=== PATIENT | male | born 1970 | race American Indian/Alaskan Native ===

== ENCOUNTER 2020-01-11 21:46 | Emergency (ER) | payer OTHER ==
[2020-01-11 21:51] VITALS: BP 129/83
--- NOTE | 2020-01-11 22:36 | Event Note ---
ED Screening Note ED Screening Note: ear pain jaw pain This initial assessment/diagnostic orders/clinical plan/treatment(s) is/are subject to change based on patients health status, clinical progression and re- assessment by fellow clinical providers in the ED. Further treatment and workup at subsequent clinical providers discretion. Patient/guardian urged not to elope from the ED as their condition may be serious if not clinically assessed and managed. Initial orders include: to treatment room
--- NOTE | 2020-01-11 23:40 | Emergency Department Report ---
ED ENT HPI - General Chief complaint: Earache Stated complaint: NAGEL/R EAR PAIN Time Seen by Provider: 01/11/20 22:36 Source: patient Mode of arrival: Ambulatory Limitations: No Limitations - History of Present Illness Initial comments: This is a 49-year-old -[place] male who presents to the emergency room with right ear pain for 3 days. Patient states he went to [facility] when symptoms started and started on pain medication which is not controlling pain. He reports constant throbbing pain. He denies tendinitis, dizziness, ear drainage, fever, or chills. MD complaint: ear pain (right) Onset/Timin -: days(s) Location: R ear Severity: severe Severity scale (0 -10): 10 Quality: other (throbbing) Consistency: constant Improves with: none Associated Symptoms: denies: fever, cough, gum swelling, toothache, pain with swallowing, sore throat, tinnitus, hearing loss, discharge from ear, rhinorrhea - Related Data Previous Rx's Medication Instructions Recorded Last Taken Type Amoxicillin [Trimox CAP] 500 mg PO BID #20 capsule 01/11/20 Unknown Rx Allergies Allergy/AdvReac Type Severity Reaction Status Date / Time No Known Allergies Allergy Verified 01/11/20 21:47 ED Dental HPI - General Chief complaint: Earache Stated complaint: NAGEL/R EAR PAIN Time Seen by Provider: 01/11/20 22:36 Source: patient Mode of arrival: Ambulatory Limitations: No Limitations - Related Data Previous Rx's Medication Instructions Recorded Last Taken Type Amoxicillin [Trimox CAP] 500 mg PO BID #20 capsule 01/11/20 Unknown Rx Allergies Allergy/AdvReac Type Severity Reaction Status Date / Time No Known Allergies Allergy Verified 01/11/20 21:47 ED Review of Systems ROS: Stated complaint: NAGEL/R EAR PAIN Other details as noted in HPI Constitutional: denies: chills, fever ENT: ear pain (Right). denies: throat pain Respiratory: denies: cough, shortness of breath, wheezing Cardiovascular: denies: chest pain, palpitations Gastrointestinal: denies: abdominal pain, nausea, diarrhea Skin: denies: rash, lesions Neurological: denies: headache, weakness, paresthesias Psychiatric: denies: anxiety, depression ED Past Medical Hx - Past Medical History Previous Medical History?: No - Surgical History Past Surgical History?: Yes Additional Surgical History: Tonsillectomy, Adenoidectomy - Social History Smoking Status: Current Every Day Smoker Substance Use Type: Alcohol - Medications Home Medications: Home Medications Medication Instructions Recorded Confirmed Last Taken Type Amoxicillin [Trimox CAP] 500 mg PO BID #20 capsule 01/11/20 Unknown Rx ED Physical Exam - General Limitations: No Limitations General appearance: alert, in no apparent distress - ENT ENT exam: Present: normal orophraynx, mucous membranes moist, normal external ear exam (left). Absent: TM's normal bilaterally (left TM erythematous and bulging) - Neck Neck exam: Present: normal inspection - Respiratory Respiratory exam: Present: normal lung sounds bilaterally. Absent: respiratory distress - Cardiovascular Cardiovascular Exam: Present: regular rate, normal rhythm. Absent: systolic murmur, diastolic murmur, rubs, gallop - GI/Abdominal GI/Abdominal exam: Present: soft, normal bowel sounds. Absent: distended, tenderness, guarding, rebound, rigid - Extremities Exam Extremities exam: Present: normal inspection - Neurological Exam Neurological exam: Present: alert, oriented X3, normal gait - Psychiatric Psychiatric exam: Present: normal affect, normal mood - Skin Skin exam: Present: warm, dry, intact, normal color. Absent: rash ED Course Vital Signs 01/11/20 21:50 Temperature 98.9 F Pulse Rate 59 L Respiratory 15 Rate Blood Pressure 129/83 O2 Sat by Pulse 99 Oximetry ED Medical Decision Making - Medical Decision Making This is a 49 y.o. male that presents with right ear pain for 3 days. Patient is stable and was examined by me. Vitals normal. Physical assessment susceptible of otitis media of right ear. Start amoxicillin and analgesics. Discussed plan with patient who agreed with plan. Referral to ENT for PRN follow up. Discharged home in stable condition. Follow up with PCP in 24-72 hours. Critical care attestation.: If time is entered above; I have spent that time in minutes in the direct care of this critically ill patient, excluding procedure time. ED Disposition Clinical Impression: Otalgia of right ear Otitis media Qualifiers: Otitis media type: suppurative Chronicity: acute Laterality: right Recurrence: non-recurrent Spontaneous tympanic membrane rupture: without spontaneous rupture Qualified Code(s): H66.001 - Acute suppurative otitis media without spontaneous rupture of ear drum, right ear Disposition: DC-01 TO HOME OR SELFCARE Is pt being admited?: No Condition: Stable Instructions: Otitis Media (ED) Additional Instructions: Give Tylenol or ibuprofen for pain every 6-8 hours. Take antibiotics as prescribed to avoid recurrence of the ear infection. Avoid high altitudes, may worsen the pain during ear infection. If symptoms do not improve within 2 to 3 days, then follow up with Primary care doctor. I provided a list of ENT doctors for follow up if symptoms worsen. Prescriptions: Amoxicillin [Trimox CAP] 500 mg PO BID #20 capsule Referrals: MILIND HOLGUIN MD [Primary Care Provider] - 3-5 Days ENT [facility], [facility] [Provider Group] - 3-5 Days ENT [facility] [Provider Group] - 3-5 Days Forms: Work/School Release Form(ED), Accompanied Note Time of Disposition: 23:44
== END 2020-01-11 23:55 | disposition home or self-care (01) ==
LOC: ED 21:46
DX: H66.001 Acute suppurative otitis media without spontaneous rupture of ear drum, right ear (principal); F17.200 Nicotine dependence, unspecified, uncomplicated
CPT/HCPCS: 99282